=== PATIENT | male | born 1960 | race African-American/Black ===

== ENCOUNTER 2023-07-12 19:41 | Emergency (ER) | payer MEDICARE, SELFPAY ==
--- NOTE | ~2023-07-12 | CT_ITS ---
EXAMINATION: CT lumbar spine wo con DATE: 07/13/2023 01:51 INDICATION: Low back pain radiating down right leg. No injury. TECHNIQUE: Computed tomography (CT) of the lumbar spine was performed without intravenous contrast. A utomated exposure control and iterative reconstruction technique were employed. Exam dose: 1362.18 m Gy-cm total exam DLP. COMPARISON: None FINDINGS: There is primary spinal stenosis, with AP dimension of the spinal canal in the midline kehinde uring 12.4 mm at L1, 11.2 mm at L2, 10.6 mm at L3, 12.6 mm at L4 and 14.2 mm at L5. There is severe degenerative disc disease, posterior spurring and minimal retrolisthesis at L5-S1. Th e lumbar interspaces otherwise are relatively preserved. There is vertebral body degenerative spurrin g at the thoracolumbar area and at L4-5. There is degenerative spurring at the apophyseal joints and ligamentum flavum hypertrophy contributin g to some secondary spinal stenosis as well. MR lumbar imaging would be helpful for more definitive evaluation particularly of the discs There is osteoarthritic spurring at the sacroiliac joints and mild bilateral osteitis condensans ilii . Small sliding hiatal hernia. Diverticulosis of the colon.. IMPRESSION: Primary and secondary lumbar spinal stenosis Severe degenerative disc disease at L5-S1 Osteophytic change at the sacroiliac joints No fracture or bone destruction Reviewed, dictated and finalized at [facility]. Reviewed, dictated and finalized at [facility]. [employer]
[2023-07-12 19:44] VITALS: BP 144/79; PULSE 65; RESP 16; TEMP 36.6; O2SAT 96
[2023-07-12 23:32] VITALS: BP 146/93; PULSE 66; RESP 16; O2SAT 100
--- NOTE | 2023-07-13 00:31 | ED.EXTPRO ---
HPI - Extremity Problem General Chief complaint: Extremity Problem,Nontraumatic <Tamiko Cook PA-C - Last Filed: 07/13/23 17:10> Stated complaint: hip pain <RONNIE Todd Last Filed: 07/13/23 17:10> Time Seen by Provider: 07/13/23 00:13 <Tamiko Cook PA-C - Last Filed: 07/13/23 17:10> Source: patient <RONNIE Todd Last Filed: 07/13/23 17:10> Mode of arrival: wheelchair <RONNIE Todd Last Filed: 07/13/23 17:10> Limitations: no limitations <RONNIE Todd Last Filed: 07/13/23 17:10> History of Present Illness HPI Narrative: This is a 63 year old male that presents to the ER for low back pain. Radiating down right leg. Started today. Reports he was using a exercise machine prior to the pain starting. No known certain injury. He took a Tramadol earlier with little relief. Reports some tingling in his extremities which is chronic due to neuropathy. Denies saddle anesthesia, or bowel/bladder incontinence. <Tamiko Cook PA-C - Last Filed: 07/13/23 17:10> Related Data Home medications: Home Medications Medication Instructions Recorded Confirmed allopurinol 300 mg tablet 300 mg PO DAILY 05/05/23 05/05/23 amiodarone 400 mg tablet 400 mg PO DAILY 05/05/23 05/05/23 apixaban 5 mg tablet 5 mg PO BID 05/05/23 05/05/23 aspirin 81 mg capsule 81 mg PO DAILY 05/05/23 05/05/23 atorvastatin 40 mg tablet 40 mg PO DAILY 05/05/23 05/05/23 carvedilol 12.5 mg tablet 12.5 mg PO Q12H 05/05/23 05/05/23 cholecalciferol (vitamin D3) 10 10 mcg PO DAILY 05/05/23 05/05/23 mcg (400 unit) capsule clopidogrel 75 mg tablet 75 mg PO DAILY 05/05/23 05/05/23 dapagliflozin propanediol 10 mg 10 mg PO DAILY 05/05/23 05/05/23 tablet furosemide 20 mg tablet 20 mg PO QAM 05/05/23 05/05/23 gabapentin 300 mg capsule 300 mg PO DAILY 05/05/23 05/05/23 metformin 500 mg tablet 500 mg PO DAILY 05/05/23 05/05/23 omeprazole 20 mg capsule,delayed 20 mg PO DAILY 05/05/23 05/05/23 release sacubitril 24 mg-valsartan 26 mg 1 tablet PO BID 05/05/23 05/05/23 tablet spironolactone 25 mg tablet 25 mg PO DAILY 05/05/23 05/05/23 tamsulosin 0.4 mg capsule 0.4 mg PO DAILY 05/05/23 05/05/23 <Tamiko Cook PA-C - Last Filed: 07/13/23 17:10> Allergies/Adverse reactions: Allergies Allergy/AdvReac Type Severity Reaction Status Date / Time codeine Allergy Unknown Rash Verified 07/12/23 23:32 <Tamiko Cook PA-C - Last Filed: 07/13/23 17:10> Review of Systems Review of Systems: CONSTITUTIONAL: Denies fever SKIN: Denies rash MUSCULOSKELETAL: Reports back pain, joint pain, and myalgia. NEUROLOGIC: Denies numbness, or weakness. <Tamiko Cook PA-C - Last Filed: 07/13/23 17:10> All systems reviewed & are unremarkable except as noted in HPI and below <Tamiko Cook PA-C - Last Filed: 07/13/23 17:10> [facility] Past Medical History Medical History: Medical History (Updated 07/13/23 @ 05:14 by Tamiko Cook PA-C) CHF (congestive heart failure) Diabetes Heart disease Hypertension <Tamiko Cook PA-C - Last Filed: 07/13/23 17:10> Surgical History Surgical History: Surgical History (Updated 05/05/23 @ 09:58 by Geraldine Peter, [facility]) History of neck surgery History of repair of right rotator cuff <Tamiko Cook PA-C - Last Filed: 07/13/23 17:10> Family History Family History: Family History (Updated 05/05/23 @ 09:59 by Geraldine Peter CMA) Mother Heart disease <Tamiko Cook PA-C - Last Filed: 07/13/23 17:10> Social History Social History: Social History (Updated 05/05/23 @ 09:59 by Geraldine Peter CMA) Smoking status: Never smoker Alcohol intake: former Substance use type: does not use Lack of Transportation: No Lack of Food: Never True Current Housing: I Have Housing Concerned About Future Housing: No Difficulty Paying Gas/Electric Bills: No Difficulty Paying for Meds: N
[2023-07-13 00:49] VITALS: BP 154/100; PULSE 76; RESP 16; O2SAT 100
--- NOTE | 2023-07-13 00:49 | PC.NURSE ---
Pt reports feeling of anxiety related to laying flat for CT scan. MCKINLEY Morrison notified.
[2023-07-13] MEDS: ACETAMINOPHEN 500 MG TABLET 1000 MG PO (00:50)
[2023-07-13] MEDS: diazePAM INJ (*CRX) 10 MG/2 ML SYRINGE 5 MG IM (00:50)
[2023-07-13 02:33] VITALS: TEMP 36.2
[2023-07-13] MEDS: oxyCODONE HCL (*CRX) 5 MG TAB IR PO (02:51)
[2023-07-13 02:56] VITALS: BP 135/85; PULSE 63; RESP 22; O2SAT 98
[2023-07-13 05:31] VITALS: BP 151/83; PULSE 56; RESP 20; O2SAT 94
[2023-07-13 07:13] VITALS: BP 136/78; PULSE 55; RESP 20; O2SAT 100
[2023-07-13 08:59] VITALS: BP 142/88; PULSE 59; RESP 20; O2SAT 98
== END 2023-07-13 09:02 | disposition home or self-care (01) ==
PROVIDERS: Emergency Provider Emergency Medicine
DX: M54.16 Radiculopathy, lumbar region (principal); I11.0 Hypertensive heart disease with heart failure; I50.9 Heart failure, unspecified; E11.9 Type 2 diabetes mellitus without complications; Z79.84 Long term (current) use of oral hypoglycemic drugs
CPT/HCPCS: 72131; 96372; 99284; A9270; J3360